=== PATIENT | male | born 1945 | race Caucasian/White ===

== ENCOUNTER 2017-12-21 08:39 | Day surgery (SDC) | payer MEDICARE, OTHER ==
[2017-12-21] MEDS ORDERED: Lactated Ringers 1,000 ML IV SCH (08:45)
[2017-12-21] MEDS ORDERED: fentaNYL 100 MCG/2 ML SDV ONE (10:07)
[2017-12-21] MEDS ORDERED: Midazolam 1 MG/ML 2 ML SDV ONE (10:07)
[2017-12-21] MEDS ORDERED: Propofol 200 MG/20 ML SDV ONE (10:07)
--- NOTE | 2017-12-21 14:00 | OR ---
DATE OF PROCEDURE: 12/21/2017 PREOPERATIVE DIAGNOSIS: Colon cancer screening. POSTOPERATIVE DIAGNOSES: Diverticulosis, small polyps at 50 and 20 cm from the anal verge. PROCEDURES: Colonoscopy to the cecum with biopsy resection of small polyps at 50 and 20 cm from the anal verge. SURGEON: Rai Tamayo MD. ANESTHESIA: IV anesthesia with monitored anesthesia care. INDICATION: This 72-year-old white male is referred for a colonoscopy for colon cancer screening. He has never had a colonoscopic exam. I counseled him for the procedure including risks and alternatives, and he gave his informed consent to proceed. DESCRIPTION OF PROCEDURE: The patient was placed in the left lateral decubitus position. IV anesthesia was administered by the Anesthesia Service. Time-out was held. A rectal exam was performed, which was unremarkable. The flexible video Olympus colonoscope was introduced through his anus, up his rectum, and out his colon all the way to the cecum. En route, we saw both left and right-sided diverticula. Once the cecum was reached , the scope was slowly withdrawn, examining the mucosa throughout. No additional mucosal abnormalities were noted until we reached 50 cm from the anal verge. Here, we saw a lesion which looked like a polyp. We removed this with a biopsy forceps. The scope was withdrawn further. At 20 cm, another polyp was seen, which was again removed with the biopsy forceps. The scope was brought back in the rectum, where it was retroflexed. The distal rectum appeared unremarkable. The scope was straightened and removed. He tolerated the procedure well. Rai Tamayo MD /[id number] MTDD
== END 2017-12-21 12:08 | disposition home or self-care (01) ==
LOC: JP.SDS 08:39
PROVIDERS: ATTEND Surgery
DX: Z12.11 Encounter for screening for malignant neoplasm of colon (principal); D12.8 Benign neoplasm of rectum; K63.5 Polyp of colon; K57.30 Diverticulosis of large intestine without perforation or abscess without bleeding; F17.210 Nicotine dependence, cigarettes, uncomplicated; I34.0 Nonrheumatic mitral (valve) insufficiency; I35.0 Nonrheumatic aortic (valve) stenosis; Z86.73 Personal history of transient ischemic attack (TIA), and cerebral infarction without residual deficits; Z91.030 Bee allergy status; Z91.018 Allergy to other foods; Z79.899 Other long term (current) drug therapy
CPT/HCPCS: 45380; J2250; J2704; J3010; J7120; 88305